=== PATIENT | female | born 1955 | race Caucasian/White ===

== ENCOUNTER 2018-10-25 10:13 | Emergency (ER) | payer BC ==
[~2018-10-25] VITALS: Ht 157.5 cm; Wt 104.5 kg
[~2018-10-25 10:13] MED LIST: ASPI-612 PO; CITA20TA28 PO; LEVO50TA67 PO; LOP25T PO; POTA20TA19 PO
[2018-10-25 11:00] LABS: BASOPHILS % (AUTO) 0.5 % (0-1); EOSINOPHILS # (AUTO) 0.2 X10'3 (0-0.9); EOSINOPHILS % (AUTO) 1.8 % (0-6); HEMATOCRIT 39.8 % (35.0-45.0); HEMOGLOBIN 13.5 g/dl (12.0-16.0); LYMPHOCYTES # (AUTO) 4.4 X10'3 (1.1-4.8); LYMPHOCYTES % (AUTO) 49.1 % (21-51); MEAN CORPUSCULAR HEMOGLOBIN 30.9 PG (27.0-31.0); MEAN CORPUSCULAR HGB CONC 33.9 g/dL (33.0-36.5); MEAN CORPUSCULAR VOLUME 91.2 FL (78-98); MEAN PLATELET VOLUME 9.8 FL (7.4-10.4); MONOCYTES # (AUTO) 0.6 X10'3 (0-0.9); MONOCYTES % (AUTO) 7.1 % (2-12); NEUTROPHILS # (AUTO) 3.8 X10'3 (1.8-7.7); NEUTROPHILS % (AUTO) 41.5 % (42-75); PLATELET COUNT 258 X10'3 (140-440); RED BLOOD COUNT 4.36 X10'6 (4.20-5.60); RED CELL DISTRIBUTION WIDTH 14.7 % (11.5-14.5)
[2018-10-25] MEDS ORDERED: aspirin 81mg tab.chew PO ONE (11:05)
[2018-10-25 11:22] LABS: ALANINE AMINOTRANSFERASE 28 U/L (12-78); ALBUMIN 3.6 G/DL (3.4-5.0); ALBUMIN/GLOBULIN RATIO 0.9 (1.1-1.5); ALKALINE PHOSPHATASE 113 IU/L (46-116); ANION GAP 4 (8-16); ASPARTATE AMINO TRANSFERASE 19 U/L (10-37); BILIRUBIN,TOTAL 0.2 MG/DL (0.1-1.0); BLOOD UREA NITROGEN 11 MG/DL (7-18); BUN/CREATININE RATIO 13.3 (6.6-38.0); CALCIUM 8.8 MG/DL (8.5-10.1); CHLORIDE 105 MMOL/L (99-107); CREATININE 0.83 MG/DL (0.40-0.90); GLUCOSE 89 MG/DL (70-104); POTASSIUM 3.8 MMOL/L (3.5-5.1); SODIUM 139 MMOL/L (135-145); TOTAL CARBON DIOXIDE 30.4 MMOL/L (24-32); TOTAL PROTEIN 7.8 G/DL (6.4-8.2); eGFR 69 ML/MIN
[2018-10-25 11:28] LABS: PARTIAL THROMBOPLASTIN TIME 29 SECONDS (22-32)
[2018-10-25 11:50] VITALS: BP 104/54
--- NOTE | 2018-10-25 13:40 | NUR ---
pt resting in bed, no distress noted,will cont to monitor.
== END 2018-10-25 14:33 | disposition home or self-care (01) ==
LOC: ER 10:14
DX: R07.89 Other chest pain (principal); F17.200 Nicotine dependence, unspecified, uncomplicated; Z79.82 Long term (current) use of aspirin; Z79.899 Other long term (current) drug therapy
CPT/HCPCS: 36415; 71045; 80053; 84484; 85025; 85610; 85730; 93005; 99284

== ENCOUNTER 2019-11-08 23:10 | Emergency (ER) | payer MEDICARE, BC ==
[~2019-11-08] VITALS: Ht 157.5 cm; Wt 55.0 kg
[2019-11-08] MEDS ORDERED: ketorolac trometh inj. 60 MG/2 ML VIAL IM ONE (23:45)
[2019-11-09] MEDS ORDERED: ACET-3067 PO (00:02)
[2019-11-09 00:06] VITALS: BP 101/55
== END 2019-11-09 00:11 | disposition home or self-care (01) ==
LOC: ER 23:10
DX: S20.211A Contusion of right front wall of thorax, initial encounter (principal); M19.90 Unspecified osteoarthritis, unspecified site; F17.200 Nicotine dependence, unspecified, uncomplicated; Z72.89 Other problems related to lifestyle; Z79.82 Long term (current) use of aspirin; Z79.899 Other long term (current) drug therapy; W01.0XXA Fall on same level from slipping, tripping and stumbling without subsequent striking against object, initial encounter; Y93.89 Activity, other specified; Y92.89 Other specified places as the place of occurrence of the external cause; Y99.8 Other external cause status
CPT/HCPCS: 71045; 93005; 96372; 99284; J1885